=== PATIENT | female | born 1960 | race Caucasian/White ===

== ENCOUNTER 2021-04-20 13:33 | Emergency (ER) | payer OTHER ==
[~2021-04-20] VITALS: Ht 165.1 cm; Wt 59.4 kg
[2021-04-20] MEDS ORDERED: FOLIC ACID1 MG PO (13:53)
[2021-04-20] MEDS ORDERED: LIPITOR 20 MG T20 M1 PO (13:53)
[2021-04-20] MEDS ORDERED: ASA81BEC PO (13:53)
[2021-04-20] MEDS ORDERED: PLAVIX 75 MG TA75 MG PO (13:53)
[2021-04-20] MEDS ORDERED: VITAMIN D-40010 MCG PO (13:53)
[2021-04-20] MEDS ORDERED: VITAMIN B-121000 MC2 SUBLING (13:53)
[2021-04-20] MEDS ORDERED: BIO COMPLETE (13:54)
[2021-04-20 14:17] LABS: HEMOGLOBIN 16.4 gm/dL (12.0-15.0); MCH 33.8 pg (26.0-34.0); MCHC 34.9 g/dL (28.0-37.0); MCV 96.9 fL (80.0-100.0); MPV 10.3 fl. (7.2-11.1); NUCLEATED RBCS 0 /100WBC; PLATELET COUNT* 174 thou/uL (150-400); RBC 4.85 mil/uL (4.20-5.00); RDW-CV 13.2 % (10.5-14.5); WBC 10.3 thou/uL (4.0-11.0)
[2021-04-20 14:27] LABS: CALCIUM 9.5 mg/dL (8.5-10.1); CREATININE 0.8 mg/dL (0.6-1.3); POTASSIUM 3.9 mmol/L (3.5-5.1)
[2021-04-20 14:31] LABS: ALBUMIN 4.4 g/dL (3.4-5.0); TOTAL BILIRUBIN 0.5 mg/dL (<0.1-1.0); TOTAL PROTEIN 8.3 g/dL (6.4-8.2)
[2021-04-20 14:40] LABS: ABSOLUTE EOSINOPHILS 0.1 thou/uL (0.0-0.7); ABSOLUTE LYMPHOCYTES 1.9 thou/uL (0.8-5.3); ABSOLUTE MONOCYTES 0.5 thou/uL (0.0-1.2); ABSOLUTE NEUTROPHILS 7.8 thou/uL (1.6-8.1); ATYPICAL LYMPHS 6 %; PLATELET ESTIMATE ADEQUATE
--- NOTE | 2021-04-20 14:47 | EKG ---
[place] [address] ELECTROCARDIOGRAM REPORT Name: AKBAR GALE Room: [facility]#: [id number] Admission: Attend Phys: Discharge: Date of : 60 Date of Service: 04/20/211419 Report #: [id number] THIS REPORT FOR: //name// [facility] ED Test Date: 2021-04-20 Test Time: 14:20:23 Pat Name: AKBAR GALE Department: Room: Gender: F [employer] Director: : 1960 Requested By: Joseph Gleason Order Number: [id number] MD: Eulalio Gonzalez Measurements Intervals [place] Rate: 82 P: 67 MD: 133 QRS: 50 QRSD: 72 T: 79 QT: 375 QTc: 438 Interpretive Statements Sinus rhythm Probable left atrial enlargement No previous ECG available for comparison Electronically Signed On 04-20-2021 14:47:13 CDT by Eulalio Gonzalez [email or web address] <ELECTRONICALLY SIGNED> By: Eulalio Gonzalez MD, [facility] 04/20/21 1447 19 1420 Eulalio Gonzalez MD, FACC /EPI
[2021-04-20 15:08] LABS: URINE BILIRUBIN NEGATIVE (Negative); URINE BLOOD NEGATIVE (Negative); URINE CLARITY CLEAR; URINE COLOR YELLOW; URINE GLUCOSE-RANDOM NEGATIVE (Negative); URINE KETONES NEGATIVE (Negative); URINE LEUKOCYTES-REFLEX NEGATIVE (Negative); URINE NITRITE-REFLEX NEGATIVE (Negative); URINE PROTEIN NEGATIVE (Negative); URINE SPECIFIC GRAVITY <= 1.005 (1.005-1.030); URINE UROBILINOGEN 0.2 E.U./dl (0.2-1.0)
[2021-04-20 17:38] VITALS: BP 134/74
== END 2021-04-20 17:38 | disposition home or self-care (01) ==
LOC: M.ERS 13:33
PROVIDERS: Physician Assistant
DX: R10.31 Right lower quadrant pain (principal); F17.210 Nicotine dependence, cigarettes, uncomplicated; Z79.82 Long term (current) use of aspirin; Z79.899 Other long term (current) drug therapy